=== PATIENT | male | born 1950 | race African-American/Black ===

== ENCOUNTER 2017-10-28 13:55 | Inpatient (IN) | payer MEDICARE ==
[~2017-10-28] VITALS: Ht 162.6 cm; Wt 119.1 kg
--- NOTE | ~2017-10-28 | OP ---
PATIENT NAME: DANIS BLACKBURN MEDICAL RECORD: [id number] :50 LOCATION:D.MS [id number] ADMISSION DATE:10/28/17 SURGEON: SEAN MONDRAGON MD DATE OF OPERATION: 10/31/2017 PREOPERATIVE DIAGNOSIS: Septic arthritis of the left knee. POSTOPERATIVE DIAGNOSIS: Septic arthritis of the left knee. PROCEDURE: Arthroscopic I&D of the left knee. SURGEON: Sean Mondragon MD ANESTHESIA: General. INTRAOPERATIVE COMPLICATIONS: None. SUMMARY OF PATHOLOGIC FINDINGS: The patient had turbid fluid that was sent for synovial fluid analysis as well as Gram stain, aerobic and anaerobic culture. It is of note that prior taps have all been negative and that there were no crystals seen. The infectious or inflammatory call remains a mystery at the time of this surgery. OPERATIVE SUMMARY IN DETAIL: After obtaining the appropriate preoperative orthopedic surgery consent as well as anesthetic consultation, evaluation, and clearance, the patient was brought to the operating room and placed on the operating table in supine position. After general laryngeal mask administered, tourniquet was placed on the proximal aspect of left lower extremity. Left lower extremity was prepped and draped in routine sterile fashion. The leg was elevated, tourniquet was inflated to 350 mmHg. Routine inferolateral portal was established through the inferior lateral portal. Copious amounts of turbid-appearing synovial fluid was noted. It was not grossly purulent. It was cloudy. The superior medial and inferior medial portal was established through which a large arthroscopic resector was utilized to take down portions of synovium in fact a near entire synovectomy was performed. There was no evidence of phlegmon. There were no evidence of internal derangements of the knee. 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 After approximately 12 liters of fluid was irrigated through the knee, the arthroscopy portals were closed in routine interrupted fashion using 4-0 Prolene. Sterile dressings were applied. The patient was awakened and taken to recovery room in stable condition. All final needle and sponge counts were correct. TRANSINT:[id number] Voice Confirmation ID: [id number] DOCUMENT ID: [id number] 11/28/2017 Edited pre/postop dx and procedure for left, SEAN Bajwa MD at 5600 CC: [id number] DICTATION DATE: 11/03/17 0937 ENAMEL DIPPER: 11/03/17 1036 DIS IN 11/07/17 [facility] [address] [id number]
[2017-10-28] MEDS ORDERED: PREDNISONE20 MG PO (14:04)
[2017-10-28] MEDS ORDERED: HYDRALAZINE HCL25 MG PO (14:04)
[2017-10-28] MEDS ORDERED: PROTONIX FOR OR40 MG PT (14:04)
[2017-10-28] MEDS ORDERED: GLIPIZIDE10 MG PO (14:05)
[2017-10-28] MEDS ORDERED: LEVOXYL50 MCG PO (14:06)
[2017-10-28] MEDS ORDERED: BUMEX 1 MG TAB1 MG PO (14:06)
[2017-10-28] MEDS ORDERED: ISOSORBIDE MONO60 M1 PO (14:07)
[2017-10-28] MEDS ORDERED: LIPITOR20 MG PO (14:07)
[2017-10-28] MEDS ORDERED: CELEXA10 MG PO (14:07)
[2017-10-28 15:58] LABS: BASOPHILS 0 % (0-2); EOSINOPHILS 0 % (0-7); HEMATOCRIT 35.7 % (42.0-54.0); HEMOGLOBIN 12.1 g/dL (13.5-17.5); IMMATURE GRANULOCYTES 0.5 % (0-5); LYMPHOCYTES 4.4 % (15-50); MCH 30.9 pg (26.0-34.0); MCHC 33.9 g/dL (31.0-37.0); MCV 91.3 fL (80.0-100.0); MEAN PLATELET VOLUME 10.1 fL (7.4-10.4); MONOCYTES 4.8 % (2-11); NEUTROPHILS 90.3 % (40-80); RBC 3.91 10x6/uL (4.20-6.10); RDW 13.8 % (11.5-14.5); WBC 12.6 10x3/uL (4.8-10.8)
[2017-10-28 16:00] LABS: PLATELET COUNT 186 10x3/uL (130-400)
[2017-10-28 16:15] LABS: INR 1.2 (0.85-1.17); PROTIME 14.8 SECONDS (11.6-15.0)
[2017-10-28 16:23] LABS: ALBUMIN 1.4 g/dL (3.4-5.0); ALKALINE PHOSPHATASE 123 U/L (46-116); ALT (SGPT) 45 U/L (10-68); BILIRUBIN - TOTAL 1.08 mg/dL (0.2-1.3); CALC OSMOLALITY 279 mosm/kg (275-300); CALCIUM 8.8 mg/dL (8.5-10.1); CARBON DIOXIDE 26.2 mmol/L (21.0-32.0); CHLORIDE - SERUM 97 mmol/L (98-107); CREATININE - SERUM 1.8 mg/dL (0.6-1.3); POTASSIUM - SERUM 3.8 mmol/L (3.5-5.1); PROTEIN - SERUM 6.8 g/dL (6.4-8.2); SODIUM 133 mmol/L (136-145); UREA NITROGEN 22 mg/dL (7-18); eGFR NON AFRICAN AMERICAN 40 mL/min (90-120)
[2017-10-28 16:24] LABS: GLUCOSE 289 mg/dL (74-106)
[2017-10-28 16:26] LABS: CKMB 0.3 U/L (0.0-3.6); CREATINE KINASE 182 UL (21-232)
[2017-10-28 16:31] LABS: D-DIMER-QUANTITATIVE 5.72 ug/mLFEU (0.20-0.54)
[2017-10-28 16:35] LABS: TROPONIN-I < 0.017 ng/mL (0.000-0.060)
[2017-10-28 18:44] LABS: APPEARANCE CLEAR (CLEAR); BILIRUBIN 1+ (NEGATIVE); COLOR ORANGE (YELLOW); GLUCOSE 50 mg/dL (NEGATIVE); KETONE SMALL mg/dL (NEGATIVE); NITRITE NEGATIVE (NEGATIVE); PROTEIN TRACE mg/dL (NEGATIVE); SPECIFIC GRAVITY 1.015 (1.005-1.020)
[2017-10-28 18:46] LABS: BACTERIA FEW /hpf (NONE SEEN); RED CELLS - URINE 0-5 /hpf (0-5); WHITE CELLS - URINE 0-5 /hpf (0-5)
[2017-10-28 21:40] VITALS: BP 128/73; BMI 45.0
[2017-10-29] VITALS: BP 147/87
[2017-10-29 04:00] VITALS: BP 164/90
[2017-10-29 06:47] LABS: BASOPHILS 0.1 % (0-2); EOSINOPHILS 0.1 % (0-7); HEMATOCRIT 33.1 % (42.0-54.0); HEMOGLOBIN 11.3 g/dL (13.5-17.5); IMMATURE GRANULOCYTES 1.2 % (0-5); LYMPHOCYTES 7.9 % (15-50); MCH 30.5 pg (26.0-34.0); MCHC 34.1 g/dL (31.0-37.0); MCV 89.5 fL (80.0-100.0); MONOCYTES 6.7 % (2-11); PLATELET COUNT 157 10x3/uL (130-400); RDW 13.8 % (11.5-14.5)
[2017-10-29 07:03] LABS: ALBUMIN 1.2 g/dL (3.4-5.0); BILIRUBIN - TOTAL 1.08 mg/dL (0.2-1.3); CALCIUM 8.2 mg/dL (8.5-10.1); CREATININE - SERUM 1.5 mg/dL (0.6-1.3)
[2017-10-29 07:12] LABS: ANION GAP 12.5 mmol/L (8-16); POTASSIUM - SERUM 4.5 mmol/L (3.5-5.1)
[2017-10-29 08:58] VITALS: Ht 162.6 cm; Wt 119.1 kg
[2017-10-29 13:29] LABS: PROTEIN - BODY FLUID 2.6 G/DL
[2017-10-29 13:56] LABS: MACROPHAGES BF 5 %; NEUT - BF 44 %
[2017-10-29 20:49] VITALS: BP 121/74
[2017-10-30 00:52] VITALS: BP 116/70
[2017-10-30 04:17] VITALS: BP 141/82
[2017-10-30] MEDS ORDERED: PROTONIX40 MG PO (05:32)
[2017-10-30 06:55] LABS: BASOPHILS 0 % (0-2); EOSINOPHILS 0.8 % (0-7); HEMATOCRIT 30.4 % (42.0-54.0); HEMOGLOBIN 10.1 g/dL (13.5-17.5); IMMATURE GRANULOCYTES 0.3 % (0-5); LYMPHOCYTES 12.4 % (15-50); MCH 30.2 pg (26.0-34.0); MCHC 33.2 g/dL (31.0-37.0); MEAN PLATELET VOLUME 10.2 fL (7.4-10.4); MONOCYTES 5.3 % (2-11); NEUTROPHILS 81.2 % (40-80); PLATELET COUNT 167 10x3/uL (130-400); RBC 3.34 10x6/uL (4.20-6.10); RDW 13.6 % (11.5-14.5); WBC 8.7 10x3/uL (4.8-10.8)
[2017-10-30 07:27] LABS: ALBUMIN 1.1 g/dL (3.4-5.0); BILIRUBIN - TOTAL 0.5 mg/dL (0.2-1.3); CALCIUM 8.1 mg/dL (8.5-10.1); CARBON DIOXIDE 28.5 mmol/L (21.0-32.0); CREATININE - SERUM 1.3 mg/dL (0.6-1.3); PROTEIN - SERUM 5.3 g/dL (6.4-8.2)
[2017-10-30 07:33] LABS: ANION GAP 9.7 mmol/L (8-16); POTASSIUM - SERUM 3.2 mmol/L (3.5-5.1)
[2017-10-30 09:09] VITALS: BP 124/75
[2017-10-30 12:31] VITALS: BP 138/82
[2017-10-30 20:09] VITALS: BP 134/81
[2017-10-31] VITALS (8 sets, daily range): BP systolic 112–171; BP diastolic 64–92
[2017-10-31 04:52] LABS: BASOPHILS 0.1 % (0-2); EOSINOPHILS 1.7 % (0-7); HEMATOCRIT 28.5 % (42.0-54.0); HEMOGLOBIN 9.4 g/dL (13.5-17.5); IMMATURE GRANULOCYTES 0.8 % (0-5); LYMPHOCYTES 14.8 % (15-50); MCH 29.7 pg (26.0-34.0); MCV 90.2 fL (80.0-100.0); MONOCYTES 7.2 % (2-11); NEUTROPHILS 75.4 % (40-80); PLATELET COUNT 192 10x3/uL (130-400); RBC 3.16 10x6/uL (4.20-6.10); RDW 13.8 % (11.5-14.5); WBC 7.7 10x3/uL (4.8-10.8)
[2017-10-31 04:59] LABS: ANION GAP 11.6 mmol/L (8-16); BILIRUBIN - TOTAL 0.28 mg/dL (0.2-1.3); CALCIUM 8.6 mg/dL (8.5-10.1); CARBON DIOXIDE 26.2 mmol/L (21.0-32.0); CREATININE - SERUM 1.2 mg/dL (0.6-1.3); POTASSIUM - SERUM 3.8 mmol/L (3.5-5.1); PROTEIN - SERUM 5.5 g/dL (6.4-8.2)
[2017-10-31 20:07] LABS: PROTEIN - BODY FLUID 1.4 G/DL
[2017-10-31 22:42] LABS: EOS BF 1 %; MACROPHAGES BF 1 %; MESOTHELIALS BF 1 %; NEUT - BF 94 %
[2017-11-01 00:18] VITALS: BP 136/71
[2017-11-01 04:10] VITALS: BP 115/70
[2017-11-01 08:00] LABS: BASOPHILS 0 % (0-2); EOSINOPHILS 1.2 % (0-7); HEMATOCRIT 27.6 % (42.0-54.0); HEMOGLOBIN 8.9 g/dL (13.5-17.5); IMMATURE GRANULOCYTES 1.5 % (0-5); LYMPHOCYTES 14.2 % (15-50); MCH 29.6 pg (26.0-34.0); MCHC 32.2 g/dL (31.0-37.0); MCV 91.7 fL (80.0-100.0); MEAN PLATELET VOLUME 9.5 fL (7.4-10.4); MONOCYTES 7.7 % (2-11); NEUTROPHILS 75.4 % (40-80); PLATELET COUNT 222 10x3/uL (130-400); RBC 3.01 10x6/uL (4.20-6.10); RDW 14.3 % (11.5-14.5); WBC 7.4 10x3/uL (4.8-10.8)
[2017-11-01 08:14] LABS: ANION GAP 10.9 mmol/L (8-16); BILIRUBIN - TOTAL 0.3 mg/dL (0.2-1.3); CALCIUM 7.7 mg/dL (8.5-10.1); CARBON DIOXIDE 26.1 mmol/L (21.0-32.0); CREATININE - SERUM 1.3 mg/dL (0.6-1.3)
[2017-11-01 08:19] VITALS: BP 139/82
[2017-11-01 17:29] VITALS: BP 138/81
[2017-11-01 20:00] VITALS: BP 146/80
[2017-11-02] VITALS: BP 146/89
[2017-11-02 04:00] VITALS: BP 156/94
[2017-11-02 04:53] LABS: BASOPHILS 0.1 % (0-2); EOSINOPHILS 1.9 % (0-7); HEMATOCRIT 26.8 % (42.0-54.0); HEMOGLOBIN 8.8 g/dL (13.5-17.5); IMMATURE GRANULOCYTES 3.6 % (0-5); LYMPHOCYTES 19.4 % (15-50); MCH 29.9 pg (26.0-34.0); MCHC 32.8 g/dL (31.0-37.0); MCV 91.2 fL (80.0-100.0); MEAN PLATELET VOLUME 9.5 fL (7.4-10.4); MONOCYTES 7.9 % (2-11); NEUTROPHILS 67.1 % (40-80); RBC 2.94 10x6/uL (4.20-6.10); RDW 14.4 % (11.5-14.5); WBC 7.5 10x3/uL (4.8-10.8)
[2017-11-02 04:54] LABS: PLATELET COUNT 275 10x3/uL (130-400)
[2017-11-02 05:01] LABS: ANION GAP 11.9 mmol/L (8-16); BILIRUBIN - TOTAL 0.3 mg/dL (0.2-1.3); CALCIUM 7.8 mg/dL (8.5-10.1); CREATININE - SERUM 1.1 mg/dL (0.6-1.3); POTASSIUM - SERUM 3.9 mmol/L (3.5-5.1); PROTEIN - SERUM 5.1 g/dL (6.4-8.2)
[2017-11-02 08:24] VITALS: BP 155/96
[2017-11-02 12:18] VITALS: BP 142/80
[2017-11-02 16:52] VITALS: BP 125/68
[2017-11-02 20:48] VITALS: BP 130/81
[2017-11-03 00:41] VITALS: BP 137/73
[2017-11-03 04:38] VITALS: BP 145/78
[2017-11-03 07:56] LABS: BASOPHILS 0.4 % (0-2); EOSINOPHILS 1.6 % (0-7); HEMATOCRIT 27.2 % (42.0-54.0); HEMOGLOBIN 8.7 g/dL (13.5-17.5); IMMATURE GRANULOCYTES 4.6 % (0-5); LYMPHOCYTES 18.1 % (15-50); MCH 29.7 pg (26.0-34.0); MCV 92.8 fL (80.0-100.0); MEAN PLATELET VOLUME 9.4 fL (7.4-10.4); MONOCYTES 6.9 % (2-11); NEUTROPHILS 68.4 % (40-80); PLATELET COUNT 323 10x3/uL (130-400); RBC 2.93 10x6/uL (4.20-6.10); RDW 14.5 % (11.5-14.5); WBC 8.3 10x3/uL (4.8-10.8)
[2017-11-03 08:07] LABS: ANION GAP 11.8 mmol/L (8-16); BILIRUBIN - TOTAL 0.29 mg/dL (0.2-1.3); CALCIUM 8.5 mg/dL (8.5-10.1); CREATININE - SERUM 1.1 mg/dL (0.6-1.3); POTASSIUM - SERUM 3.8 mmol/L (3.5-5.1); PROTEIN - SERUM 5.5 g/dL (6.4-8.2)
[2017-11-03 08:41] VITALS: BP 145/77
[2017-11-03 11:29] VITALS: BP 161/89
[2017-11-03 15:55] VITALS: BP 157/77
[2017-11-03 20:00] VITALS: BP 141/74
[2017-11-04] VITALS (7 sets, daily range): BP systolic 128–167; BP diastolic 69–80
[2017-11-05 04:07] VITALS: BP 140/83
[2017-11-05 05:40] LABS: BASOPHILS 0.3 % (0-2); EOSINOPHILS 0.9 % (0-7); HEMATOCRIT 27.2 % (42.0-54.0); HEMOGLOBIN 8.7 g/dL (13.5-17.5); IMMATURE GRANULOCYTES 4.4 % (0-5); LYMPHOCYTES 18.2 % (15-50); MCH 29.4 pg (26.0-34.0); MCV 91.9 fL (80.0-100.0); MEAN PLATELET VOLUME 8.8 fL (7.4-10.4); MONOCYTES 6.8 % (2-11); NEUTROPHILS 69.4 % (40-80); PLATELET COUNT 370 10x3/uL (130-400); RBC 2.96 10x6/uL (4.20-6.10); RDW 14.5 % (11.5-14.5); WBC 7.8 10x3/uL (4.8-10.8)
[2017-11-05 05:56] LABS: CALC OSMOLALITY 281 mosm/kg (275-300); CALCIUM 8.5 mg/dL (8.5-10.1); CARBON DIOXIDE 26.1 mmol/L (21.0-32.0); CHLORIDE - SERUM 109 mmol/L (98-107); GLUCOSE 163 mg/dL (74-106); POTASSIUM - SERUM 3.9 mmol/L (3.5-5.1); SODIUM 141 mmol/L (136-145); UREA NITROGEN 5 mg/dL (7-18); eGFR NON AFRICAN AMERICAN 79 mL/min (90-120)
[2017-11-05 06:03] LABS: C-REACTIVE PROTEIN 29.1 mg/dL (0.0-0.9)
[2017-11-05 07:02] LABS: ERYTHROCYTE SEDIMENTATION RATE 130 mm/hr (0-20)
[2017-11-05 08:07] VITALS: BP 153/80
[2017-11-05] MEDS ORDERED: DOXYCYCLINE HY100 M2 PO (08:59)
[2017-11-05 18:29] VITALS: BP 142/85
[2017-11-05 21:08] VITALS: BP 149/81
[2017-11-06 01:08] VITALS: BP 142/81
[2017-11-06 04:45] VITALS: BP 147/87
[2017-11-06 08:00] VITALS: BP 154/89
[2017-11-06 10:11] LABS: BASOPHILS 0.1 % (0-2); EOSINOPHILS 0.8 % (0-7); HEMOGLOBIN 8.9 g/dL (13.5-17.5); IMMATURE GRANULOCYTES 1.8 % (0-5); LYMPHOCYTES 15.7 % (15-50); MCH 29.7 pg (26.0-34.0); MCHC 31.8 g/dL (31.0-37.0); MCV 93.3 fL (80.0-100.0); MEAN PLATELET VOLUME 8.4 fL (7.4-10.4); MONOCYTES 4.8 % (2-11); NEUTROPHILS 76.8 % (40-80); PLATELET COUNT 359 10x3/uL (130-400); RDW 14.4 % (11.5-14.5); WBC 7.7 10x3/uL (4.8-10.8)
[2017-11-06 12:15] VITALS: BP 144/84
[2017-11-06 16:00] VITALS: BP 136/72
[2017-11-06 20:13] VITALS: BP 140/82
[2017-11-07] VITALS: BP 141/73
[2017-11-07 04:00] VITALS: BP 134/79
[2017-11-07 08:41] VITALS: BP 143/86
[2017-11-07 13:04] VITALS: BP 157/84
[2017-11-07 16:39] VITALS: BP 136/78
[2017-11-07] MEDS ORDERED: HYDROCODONE-APA1 TAB PO (17:14)
== END 2017-11-07 17:38 | DRG 548 ==
LOC: D.ER 13:55 → D.MS 17:18
PROVIDERS: Family Medicine; Orthopaedic Surgery; Student in an Organized Health Care Education/Training Program
PROC: 0S9D3ZZ Drainage of Left Knee Joint, Percutaneous Approach (ICD-10-PCS; principal; 2017-10-29)
PROC: 0S9C4ZZ Drainage of Right Knee Joint, Percutaneous Endoscopic Approach (ICD-10-PCS; 2017-10-31)
DX: M00.9 Pyogenic arthritis, unspecified (principal); J18.9 Pneumonia, unspecified organism; L03.116 Cellulitis of left lower limb; I10 Essential (primary) hypertension; R79.89 Other specified abnormal findings of blood chemistry; E11.9 Type 2 diabetes mellitus without complications; Z79.84 Long term (current) use of oral hypoglycemic drugs

== ENCOUNTER 2018-09-07 13:38 | Inpatient (IN) | payer MEDICARE ==
[~2018-09-07] VITALS: Ht 162.6 cm; Wt 111.2 kg
--- NOTE | ~2018-09-07 | EC ---
PATIENT:DANIS BLACKBURN DATE OF SERVICE: 09/07/18 SEX: M MEDICAL RECORD: [id number] DATE OF : 50 LOCATION:D.M2 D.213 AGE OF PATIENT: 68 ADMISSION DATE: 09/07/18 REFERRING PHYSICIAN: INTERPRETING PHYSICIAN: VIK DEUTSCH MD ECHOCARDIOGRAM REPORT ECHO CHARGES 4 ECHO COMPLETE Date: 09/08/18 CLINICAL DIAGNOSIS: LOWER EDEMA, HX OF HTN ECHOCARDIOGRAPHIC MEASUREMENTS (adult normal given) AC root (d.<3.7cm) 3.9 cm LV Septum d (<1.2 cm> 1.5 cm Valve Excursion 2.1 cm LV Septum (systole) 1.7 cm Left Atria (s.<4.0cm> 3.4 cm LVPW d(<1.2cm) 1.9 cm RV (d.<2.3cm) 3.4 cm LVPW (sytole) 2.0 cm LV diastole(<5.6CM) 4.2 cm MV E-F(>70mm/sec) cm LV systole 3.0 cm LVOT Diameter 1.7 cm MV exc.(>10mm) 1.7 cm Est.ejection fraction (50-75%) % DOPPLER: LVIT cm/sec A 73.0 cm/sec E 51.0 cm/sec LA cm/sec RVSP 32 mmHg LVOT 81 cm/sec AOP1/2T m/s Asc. Ao 122 cm/sec RVOT 93 cm/sec RA cm/sec PA 119 cm/sec AV Gradient Peak 5.99 mmHg AV Mean 2.08 mmHg AV Area 1.7 cm MV Gradient Peak 2.70 mmHg MV Mean 1.47 mmHg MV Area cm COMMENTS: Transportation Officer: 2 ENOCH JAVIER [employer] Cutter Finisher: 1 Dr. Deutsch TAPE# PACS Pericardial Effusion N DATE OF SERVICE: FINDINGS: 1. Left ventricular chamber size is within normal limits. Left ventricular systolic function is normal. Overall ejection fraction estimated at 60%. 2. Left atrium, right atrium and right ventricular chamber sizes are within normal limits. 3. Valvular structures have normal structure and motion. 4. Doppler interrogation reveals no significant valvular insufficiency or stenosis. ECHOCARDIOGRAM REPORT [id number] DANIS BLACKBURN 5. No evidence of pericardial effusion or left ventricular thrombus. TRANSINT:[id number] Voice Confirmation ID: [id number] DOCUMENT ID: [id number] VIK DEUTSCH MD CC: [id number] DICTATION DATE: 09/08/18 1431 JET PILOT: 09/09/18 0032 ADM IN [facility] [address] [id number]
[~2018-09-07 13:38] MED LIST: BUMEX 1 MG TAB1 MG PO; CELEXA10 MG PO; DOXYCYCLINE HY100 M2 PO; GLIPIZIDE10 MG PO; HYDRALAZINE HCL25 MG PO; HYDROCODONE-APA1 TAB PO; ISOSORBIDE MONO60 M1 PO; LEVOXYL50 MCG PO; LIPITOR20 MG PO; PREDNISONE20 MG PO; PROTONIX FOR OR40 MG PT; PROTONIX40 MG PO
[2018-09-07] MEDS ORDERED: CATAPRES0.1 MG PO (14:01)
[2018-09-07] MEDS ORDERED: HCTZ PO (14:03)
[2018-09-07] MEDS ORDERED: TRIAM PO (14:03)
[2018-09-07] MEDS ORDERED: FERROUS SULFAT325 MG PO (14:04)
[2018-09-07] MEDS ORDERED: LISINOPRIL20 MG PO (14:04)
[2018-09-07] MEDS ORDERED: ALBUTEROL SULF8.5 GM INH (14:05)
[2018-09-07] MEDS ORDERED: SYMBICORT 16010.2 GM INH (14:05)
[2018-09-07 14:34] LABS: BASOPHILS 0.2 % (0-2); EOSINOPHILS 7.9 % (0-7); HEMATOCRIT 37.7 % (42.0-54.0); IMMATURE GRANULOCYTES 0.2 % (0-5); LYMPHOCYTES 36.7 % (15-50); MCH 30.2 pg (26.0-34.0); MCHC 34.5 g/dL (31.0-37.0); MCV 87.7 fL (80.0-100.0); MEAN PLATELET VOLUME 9.2 fL (7.4-10.4); MONOCYTES 5.6 % (2-11); NEUTROPHILS 49.4 % (40-80); PLATELET COUNT 162 10x3/uL (130-400); WBC 4.8 10x3/uL (4.8-10.8)
[2018-09-07 14:55] LABS: ALBUMIN 1.1 g/dL (3.4-5.0); BILIRUBIN - TOTAL 0.21 mg/dL (0.2-1.3); CALCIUM 7.7 mg/dL (8.5-10.1); CARBON DIOXIDE 25.4 mmol/L (21.0-32.0); CREATININE - SERUM 3.8 mg/dL (0.6-1.3); POTASSIUM - SERUM 3.4 mmol/L (3.5-5.1); PROTEIN - SERUM 5.1 g/dL (6.4-8.2)
[2018-09-07 15:33] VITALS: BP 170/82
[2018-09-07 16:32] VITALS: BP 167/91
--- NOTE | 2018-09-07 16:37 | NUR ---
TO CT VIA STRETHER WITH INSURANCE SALESPERSON
[2018-09-07 17:25] VITALS: BP 162/93
--- NOTE | 2018-09-07 18:04 | NUR ---
PT VOIED 600ML CLEAR YELLOW URINE VIA URINAL. RESTING COMFORTABLE/WATCHING TV. NO C/O
[2018-09-07 18:32] VITALS: BP 174/97
--- NOTE | 2018-09-07 18:32 | NUR ---
EXPL POC/ADMIT TO PT. VERB UNDER
--- NOTE | 2018-09-07 19:02 | NUR ---
REPORT GIVEN TO ALLIE BY SBAR FORMAT
--- NOTE | 2018-09-07 20:30 | NUR ---
PT ARRIVED TO ROOM 2131, PT IS AAO. UPDATED MED REC AND PHARMACY. PT TELEMETRY PLACED AND URINAL PROVIDED. RIGHT AC IV 20G PATENT DRSG CDI. S1S2 RRR. PT IS SINUS PHILIPPE 56. PT WILL CALL FOR ASSIST WHEN NEEDED
[2018-09-07 21:14] VITALS: BP 198/94
[2018-09-07] MEDS ORDERED: NITROQUICK0.4 MG SL (23:58)
[2018-09-08] VITALS (7 sets, daily range): BP systolic 150–198; BP diastolic 91–106; Ht 162.6 cm; Wt 111.2 kg
[2018-09-08] MEDS ORDERED: BAYER CHEWABLE81 MG PO (00:02)
--- NOTE | 2018-09-08 06:32 | NUR ---
PT URINAL EMPTIED 275 CLEAR YELLOW URINE. BUMEX INFUSING AT 10 ORDERED TO RIGHT AC. PT HAS NO S/S OF DISTRESS. WILL CPOC
[2018-09-08 07:02] LABS: ANION GAP 9.8 mmol/L (8-16); BILIRUBIN - TOTAL 0.29 mg/dL (0.2-1.3); CALCIUM 7.6 mg/dL (8.5-10.1); CARBON DIOXIDE 27.1 mmol/L (21.0-32.0); CREATININE - SERUM 3.7 mg/dL (0.6-1.3); MAGNESIUM - SERUM 2.2 mg/dL (1.8-2.4); POTASSIUM - SERUM 3.9 mmol/L (3.5-5.1); PROTEIN - SERUM 4.6 g/dL (6.4-8.2)
[2018-09-08 07:03] LABS: BASOPHILS 0.6 % (0-2); EOSINOPHILS 6.9 % (0-7); HEMATOCRIT 36.4 % (42.0-54.0); HEMOGLOBIN 12.5 g/dL (13.5-17.5); IMMATURE GRANULOCYTES 0.4 % (0-5); LYMPHOCYTES 36.6 % (15-50); MCHC 34.3 g/dL (31.0-37.0); MCV 87.5 fL (80.0-100.0); MEAN PLATELET VOLUME 9.7 fL (7.4-10.4); MONOCYTES 9.1 % (2-11); NEUTROPHILS 46.4 % (40-80); PLATELET COUNT 155 10x3/uL (130-400); RBC 4.16 10x6/uL (4.20-6.10); RDW 14.2 % (11.5-14.5)
--- NOTE | 2018-09-08 07:48 | NUR ---
THE PATIENT IS AWAKE AND ALERT, HIS BP IS ELEVATED 150/91, WILL MONITOR. RT HERE PROVIDING INHALER. HE IS ALERT, ORIENTED AND PLEASANT.
--- NOTE | 2018-09-08 11:58 | NUR ---
PATIENT REQUESTED A POPSICKLE DID PROVIDE HIM A POPSICKLE. HE HAS HAD TWO ICED WISDOM AND AN APPLE JUICE.
--- NOTE | 2018-09-08 12:08 | NUR ---
THE PATIENT'S BLOOD PRESSURE IS 189/99, WILL PROVIDE HYDRALAZINE ORDERED, SEE MAR
--- NOTE | 2018-09-08 12:53 | NUR ---
OT EVAL: PT DOING WELL WITH ADLS AND MOBILITY. ABLE TO AMB WITHOUT ASSIST IN ROOM; ALL ADLS, INCLUDING SHOWER, PT WAS ABLE TO PERFORM INDEPENDENTLY. NO OT RECOMMENDED AT THIS TIME. JOSE CROOK, OTR/L
--- NOTE | 2018-09-08 14:14 | NUR ---
THE PATIENT IS UP IN HIS BATHROOM AND HE SAYS HE DENIES NEEDS AT THIS TIME.
--- NOTE | 2018-09-08 15:01 | NUR ---
THE PATIENT'S BP IS 185/86, HE ALREADY HAD HYDRALAZINE AT NOON, HE CAN HAVE HYDRALAZINE EVERY SIX HOURS PRN.
--- NOTE | 2018-09-08 15:51 | NUR ---
CHECKED ON THE PATIENT, HE IS RESTING EASILY IN HIS BED, HE HAS NO NEEDS AT THIS TIME.
--- NOTE | 2018-09-08 17:30 | NUR ---
THE PATIENT SAID HE HAD AN ACCIDENT IN THE BATHROOM, DID LOOK AT THE BATHROOM AND HE HAD URINATED ON THE FLOOR AND THE TOILET SEAT. DID CLEAN THE FLOOR AND TOILET UP AND BROUGHT HIM A CLEAN GOWN.
--- NOTE | 2018-09-08 19:15 | NUR ---
RECEIVED REPORT, WILL ASSUME CARE OF PT, WATCHING TV, DENIES ANY NEEDS AT THIS TIME, BED IS LOW, SRX2, CALL LIGHT IN REACH, WILL CONTINUE PLAN OF CARE
[2018-09-09 00:47] VITALS: BP 181/93
--- NOTE | 2018-09-09 02:55 | NUR ---
I have reviewed this patient and I concur with the Shift Assessment completed by the Licensed Practical Nurse today this shift.
[2018-09-09 05:24] VITALS: BP 165/94
[2018-09-09 05:55] LABS: BASOPHILS 0.5 % (0-2); EOSINOPHILS 7.5 % (0-7); HEMATOCRIT 38.1 % (42.0-54.0); HEMOGLOBIN 13.3 g/dL (13.5-17.5); IMMATURE GRANULOCYTES 0.2 % (0-5); LYMPHOCYTES 35.8 % (15-50); MCH 30.4 pg (26.0-34.0); MCHC 34.9 g/dL (31.0-37.0); MEAN PLATELET VOLUME 9.5 fL (7.4-10.4); MONOCYTES 10.8 % (2-11); NEUTROPHILS 45.2 % (40-80); PLATELET COUNT 167 10x3/uL (130-400); RBC 4.38 10x6/uL (4.20-6.10); RDW 14.2 % (11.5-14.5); WBC 4.3 10x3/uL (4.8-10.8)
[2018-09-09 06:16] LABS: ANION GAP 12.9 mmol/L (8-16); BILIRUBIN - TOTAL 0.25 mg/dL (0.2-1.3); CALCIUM 7.7 mg/dL (8.5-10.1); CARBON DIOXIDE 24.5 mmol/L (21.0-32.0); CREATININE - SERUM 3.7 mg/dL (0.6-1.3); MAGNESIUM - SERUM 2.2 mg/dL (1.8-2.4); POTASSIUM - SERUM 3.4 mmol/L (3.5-5.1); PROTEIN - SERUM 4.7 g/dL (6.4-8.2)
--- NOTE | 2018-09-09 07:40 | NUR ---
REPORT RECIEVED AND MORNING ROUNDING COMPLETE. PT LAYING IN BED TALKING ON THE PHONE. PT STATES NO NEEDS AT THIS TIME. CALL LIGHT WITHIN REACH AND BED IN LOWEST POSITION. PT HAS A RIGHT AC PIV RUNNING @ 1OML/HR. NO S/SX OF PROBLEM, PT DISPLAYS NO S/SX OF DISTRESS. CPOC.
[2018-09-09 08:10] VITALS: BP 151/91
[2018-09-09 11:51] VITALS: BP 142/86
--- NOTE | 2018-09-09 12:42 | NUR ---
PLACED A 16 BENINESE VELEZ. PT TOLERATED WELL. WAS ABLE TO RECIEVE UA SAMPLE WELL. STERILE TECHINQUE FOLLOWED. PT RESTING NOW AND EATING LUNCH, NO OTHER NEEDS AT THIS TIME CALL LIGHT WITHIN REACH.
[2018-09-09 16:01] VITALS: BP 154/107
[2018-09-09 16:07] LABS: APPEARANCE CLEAR (CLEAR); BILIRUBIN NEGATIVE (NEGATIVE); COLOR YELLOW (YELLOW); GLUCOSE 100 mg/dL (NEGATIVE); KETONE NEGATIVE (NEGATIVE); NITRITE NEGATIVE (NEGATIVE); PROTEIN 2+ mg/dL (NEGATIVE); SPECIFIC GRAVITY 1.015 (1.005-1.020); UROBILINOGEN NORMAL (NORMAL)
[2018-09-09 16:08] LABS: BACTERIA FEW /hpf (NONE SEEN); RED CELLS - URINE 0-5 /hpf (0-5); WHITE CELLS - URINE 0-5 /hpf (0-5)
[2018-09-09 16:16] LABS: CREATININE - URINE 35.5 mg/dL (30-125)
[2018-09-09 16:17] LABS: PRO/CRE RATIO URINE 14.2 mg/g; PROTEIN - URINE 502.8 mg/dL (0.0-11.9)
--- NOTE | 2018-09-09 18:18 | NUR ---
I have reviewed this patient and I concur with the Shift Assessment completed by the Licensed Practical Nurse today this shift.
--- NOTE | 2018-09-09 19:44 | NUR ---
RECEIVED REPORT, WILL ASSUME CARE OF PT, PT IS WANTING VELEZ REMOVED, EXPLAINED DRSandy WANTS IT KEEP, SO WE CAN SEE HOW MUCH HE IS PUTTING OUT, FAMILY IN ROOM, TOLD HIM I WOULD BE BACK TO SEE WHAT HE WANTS TO DO, BED IS LOW, SRX1, CALL LIGHT IN REACH, WILL CONTINUE PLAN OF CARE
--- NOTE | 2018-09-09 19:52 | NUR ---
PT HAS AGREE TO KEEP VELEZ AT THIS TIME
[2018-09-09 20:00] VITALS: BP 169/98
[2018-09-10] VITALS: BP 153/87
--- NOTE | 2018-09-10 03:37 | NUR ---
I have reviewed this patient and I concur with the Shift Assessment completed by the Licensed Practical Nurse today this shift.
[2018-09-10 04:00] VITALS: BP 157/96
[2018-09-10 06:20] LABS: BASOPHILS 0.2 % (0-2); EOSINOPHILS 6.9 % (0-7); HEMATOCRIT 36.7 % (42.0-54.0); HEMOGLOBIN 12.5 g/dL (13.5-17.5); LYMPHOCYTES 35.6 % (15-50); MCH 29.9 pg (26.0-34.0); MCHC 34.1 g/dL (31.0-37.0); MCV 87.8 fL (80.0-100.0); MEAN PLATELET VOLUME 10.2 fL (7.4-10.4); MONOCYTES 10.5 % (2-11); NEUTROPHILS 46.8 % (40-80); PLATELET COUNT 175 10x3/uL (130-400); RBC 4.18 10x6/uL (4.20-6.10); RDW 14.4 % (11.5-14.5)
[2018-09-10 06:41] LABS: ALBUMIN 0.9 g/dL (3.4-5.0); ANION GAP 11.9 mmol/L (8-16); BILIRUBIN - TOTAL 0.27 mg/dL (0.2-1.3); CALCIUM 7.9 mg/dL (8.5-10.1); CARBON DIOXIDE 25.5 mmol/L (21.0-32.0); CREATININE - SERUM 4.1 mg/dL (0.6-1.3); MAGNESIUM - SERUM 2.1 mg/dL (1.8-2.4); POTASSIUM - SERUM 3.4 mmol/L (3.5-5.1); PROTEIN - SERUM 4.6 g/dL (6.4-8.2)
--- NOTE | 2018-09-10 07:30 | NUR ---
RESTING QUIETLY EYES CLOSED RESP UNLABORED SKIN W/D NAD NOTED
[2018-09-10 08:14] VITALS: BP 153/92
--- NOTE | 2018-09-10 11:50 | NUR ---
FSBS 267 HUMALOG 6 UNITS GIVEN SQ ABDOMEN
[2018-09-10 12:08] VITALS: BP 129/74
[2018-09-10 15:49] VITALS: BP 164/93
--- NOTE | 2018-09-10 20:16 | NUR ---
RECEIVED REPORT, WILL ASSUME CARE OF PT, DENIES ANY NEEDS AT THIS TIME, BED IS LOW, SRX2, CALL LIGHT IN REACH, WILL CONTINUE PLAN OF CARE
[2018-09-10 20:33] VITALS: BP 155/92
[2018-09-11 00:33] VITALS: BP 144/95
--- NOTE | 2018-09-11 04:27 | NUR ---
I have reviewed this patient and I concur with the Shift Assessment completed by the Licensed Practical Nurse today this shift.
[2018-09-11 05:08] VITALS: BP 144/80
[2018-09-11 06:35] LABS: ALBUMIN 0.9 g/dL (3.4-5.0); ANION GAP 10.8 mmol/L (8-16); BILIRUBIN - TOTAL 0.36 mg/dL (0.2-1.3); CALCIUM 7.7 mg/dL (8.5-10.1); CARBON DIOXIDE 26.1 mmol/L (21.0-32.0); CREATININE - SERUM 4.3 mg/dL (0.6-1.3); MAGNESIUM - SERUM 1.9 mg/dL (1.8-2.4); POTASSIUM - SERUM 3.9 mmol/L (3.5-5.1); PROTEIN - SERUM 4.6 g/dL (6.4-8.2)
[2018-09-11 06:58] LABS: BASOPHILS 0.3 % (0-2); EOSINOPHILS 3.2 % (0-7); HEMOGLOBIN 12.7 g/dL (13.5-17.5); IMMATURE GRANULOCYTES 0.1 % (0-5); LYMPHOCYTES 24.7 % (15-50); MCH 30.4 pg (26.0-34.0); MCHC 34.3 g/dL (31.0-37.0); MCV 88.5 fL (80.0-100.0); MEAN PLATELET VOLUME 9.6 fL (7.4-10.4); MONOCYTES 8.3 % (2-11); NEUTROPHILS 63.4 % (40-80); PLATELET COUNT 154 10x3/uL (130-400); RBC 4.18 10x6/uL (4.20-6.10); RDW 14.3 % (11.5-14.5)
[2018-09-11 07:04] LABS: WBC 7.1 10x3/uL (4.8-10.8)
--- NOTE | 2018-09-11 07:45 | NUR ---
RECIEVED SITTING UP ON SIDE OF BED. DENIES ANY PAIN BUT IS UNCOMFORTABLE WITH VELEZ. HE IS WANTING IT OUT. NO OTHER REQUESTS OR COMPLAINTS. ASSESSMENT COMPLETED. WILL CONTINUE POC.
[2018-09-11 08:00] VITALS: BP 141/102
[2018-09-11 09:17] LABS: COMPLEMENT C4 22.6 mg/dL (17.4-52.2)
[2018-09-11 10:21] LABS: ERYTHROCYTE SEDIMENTATION RATE 89 mm/hr (0-20)
[2018-09-11 12:00] VITALS: BP 134/78
--- NOTE | 2018-09-11 12:03 | NUR ---
I have reviewed this patient and I concur with the Shift Assessment completed by the Licensed Practical Nurse today this shift.
--- NOTE | 2018-09-11 14:11 | NUR ---
Nutrition Follow Up: Renal ADA diet with 73% average po intake BM yesterday Pt reports good appetite and no problems chewing the food Pt has no questions about Renal diet at this time RD following
[2018-09-11 16:20] VITALS: BP 148/91
--- NOTE | 2018-09-11 16:55 | NUR ---
OT NOTE: PT COMPLETED SITTING BALANCE AXS WITH SBA. PT COMPLETED SIT TO STAND WITH CGA/MIN A. PT COMPLETED GROOMING TASK WITH SET UP. PT COMPLETED BUE AROM AXS. 03/1132 THANK YOU, JESUS WILLIAMSON
--- NOTE | 2018-09-11 19:30 | NUR ---
RECEIVED REPORT, WILL ASSUME CARE OF PT, DENIES ANY NEEDS, VISITING WITH FAMILY, BED IS LOW, SRX2, CALL LIGHT IN REACH, WILL CONTINUE PLAN OF CARE
[2018-09-11 20:00] VITALS: BP 131/92
[2018-09-12] VITALS: BP 144/81
--- NOTE | 2018-09-12 03:49 | NUR ---
I have reviewed this patient and I concur with the Shift Assessment completed by the Licensed Practical Nurse today this shift.
[2018-09-12 04:00] VITALS: BP 120/82
[2018-09-12 05:37] LABS: APPEARANCE HAZY (CLEAR); BILIRUBIN NEGATIVE (NEGATIVE); COLOR YELLOW (YELLOW); GLUCOSE 100 mg/dL (NEGATIVE); KETONE NEGATIVE (NEGATIVE); NITRITE NEGATIVE (NEGATIVE); PROTEIN 3+ mg/dL (NEGATIVE); SPECIFIC GRAVITY 1.015 (1.005-1.020); UROBILINOGEN NORMAL (NORMAL)
[2018-09-12 05:40] LABS: BACTERIA FEW /hpf (NONE SEEN); EPITHELIAL CELLS OCC /hpf (0-5); GRANULAR CAST RARE /lpf (NONE SEEN); HYALINE CAST 0-5 /lpf (NONE SEEN); MUCUS <1+ /lpf (NONE SEEN); RED CELLS - URINE 25-50 /hpf (0-5); WHITE CELLS - URINE 0-5 /hpf (0-5)
[2018-09-12 05:41] LABS: AMORPHOUS SEDIMENT <1+ /lpf (NONE SEEN); WAXY CAST RARE /lpf (NONE SEEN)
[2018-09-12 05:43] LABS: BASOPHILS 0.4 % (0-2); EOSINOPHILS 9.4 % (0-7); HEMATOCRIT 31.3 % (42.0-54.0); HEMOGLOBIN 10.7 g/dL (13.5-17.5); IMMATURE GRANULOCYTES 0.2 % (0-5); LYMPHOCYTES 39.4 % (15-50); MCH 30.2 pg (26.0-34.0); MCHC 34.2 g/dL (31.0-37.0); MCV 88.4 fL (80.0-100.0); MEAN PLATELET VOLUME 9.5 fL (7.4-10.4); MONOCYTES 7.4 % (2-11); NEUTROPHILS 43.2 % (40-80); PLATELET COUNT 143 10x3/uL (130-400); RBC 3.54 10x6/uL (4.20-6.10); RDW 14.3 % (11.5-14.5); WBC 5.5 10x3/uL (4.8-10.8)
[2018-09-12 06:26] LABS: ALBUMIN 0.9 g/dL (3.4-5.0); ANION GAP 12.2 mmol/L (8-16); BILIRUBIN - TOTAL 0.31 mg/dL (0.2-1.3); CALCIUM 7.7 mg/dL (8.5-10.1); CARBON DIOXIDE 25.7 mmol/L (21.0-32.0); CREATININE - SERUM 4.3 mg/dL (0.6-1.3); POTASSIUM - SERUM 3.9 mmol/L (3.5-5.1); PROTEIN - SERUM 4.3 g/dL (6.4-8.2)
[2018-09-12 07:18] LABS: RAPID PLASMA REAGIN Non Reactive (Non Reactive)
--- NOTE | 2018-09-12 07:29 | NUR ---
AM ROUNDS- PT IN BED THE BATHROOM AT THIS TIME. WILL COME BACK ONCE HE IS OUT.
[2018-09-12 08:10] LABS: PROTEIN - URINE 1968.1 mg/dL (0.0-11.9)
[2018-09-12 08:31] LABS: CREATININE - URINE 141.9 mg/dL (30-125); PRO/CRE RATIO URINE 13.9 mg/g
[2018-09-12 08:57] VITALS: BP 137/85
[2018-09-12 09:13] LABS: ANA REFLEX - DIRECT Negative (Negative)
--- NOTE | 2018-09-12 11:28 | NUR ---
BLOOD SUGAR OF 143, NO COVERAGE NEEDED PER S/S. PT DENIES ANY NEEDS AT THIS TIME. CALL LIGHT IN REACH, NAD NOTED, WILL CONTINUE TO MONITOR.
--- NOTE | 2018-09-12 11:32 | NUR ---
BLOOD SUGAR OF 227, 8UNIT OF HUMULIN GIVEN PER S/S. PT DENIES ANY NEEDS AT THIS TIME. CALL LIGHT IN REACH, NAD NOTED, WILL CONTINUE TO MONITOR.
[2018-09-12 11:59] VITALS: BP 163/99
--- NOTE | 2018-09-12 12:12 | NUR ---
VELEZ CATHETER REMOVED PER ORDERS. PASSED BULB DEFLATION. NO CATHY BLOOD. URINAL AT BEDSIDE INSTRUCTED TO USE.
--- NOTE | 2018-09-12 16:00 | NUR ---
PT TRANSFERED TO CAR DESIGNER.
--- NOTE | 2018-09-12 16:08 | NUR ---
BLOOD SUGAR OF 215, 4UNITS OF HUMOLOG GIVEN PER S/S. PT DENIES ANY NEEDS AT THIS TIME. CALL LIGHT IN REACH, NAD NTOED, WILL CONTINUE TO MONITOR.
[2018-09-12 16:11] VITALS: BP 142/83
[2018-09-12 20:00] VITALS: BP 181/93
--- NOTE | 2018-09-12 21:02 | NUR ---
HS MEDS GIVEN WITH FRESH ICE WATER. BS COVERED PER S/S. PT DENIES PAIN OR NEEDS, BED LOW, CL IN REACH.
[2018-09-13 00:30] VITALS: BP 141/102
--- NOTE | 2018-09-13 02:01 | NUR ---
RESTING WITH EYES CLOSED, RESPERATONS EVEN, NO S/S DISTRESS NOTED.
--- NOTE | 2018-09-13 04:11 | NUR ---
I have reviewed this patient and I concur with the Shift Assessment completed by the Licensed Practical Nurse today this shift.
[2018-09-13 05:00] VITALS: BP 132/84
[2018-09-13 05:01] LABS: BASOPHILS 0 % (0-2); EOSINOPHILS 0 % (0-7); HEMATOCRIT 34.8 % (42.0-54.0); HEMOGLOBIN 12.1 g/dL (13.5-17.5); IMMATURE GRANULOCYTES 0.4 % (0-5); LYMPHOCYTES 17.9 % (15-50); MCHC 34.8 g/dL (31.0-37.0); MEAN PLATELET VOLUME 9.5 fL (7.4-10.4); MONOCYTES 3.9 % (2-11); NEUTROPHILS 77.8 % (40-80); PLATELET COUNT 141 10x3/uL (130-400); RBC 4.03 10x6/uL (4.20-6.10); RDW 13.6 % (11.5-14.5); WBC 5.6 10x3/uL (4.8-10.8)
[2018-09-13 05:04] LABS: MCV 86.4 fL (80.0-100.0)
[2018-09-13 05:17] LABS: ANION GAP 13.2 mmol/L (8-16); CALCIUM 7.8 mg/dL (8.5-10.1); CARBON DIOXIDE 22.2 mmol/L (21.0-32.0); CREATININE - SERUM 4.2 mg/dL (0.6-1.3); POTASSIUM - SERUM 4.4 mmol/L (3.5-5.1)
--- NOTE | 2018-09-13 07:17 | NUR ---
PT RESTING COMFORTABLY IN BED, PT A/O X4, RESP EVEN AND NONLABORED ON RA. SR 69 ON TELEMETRY. LT FA SL. PT DENIES ANY NEEDS AT THIS TIME. CALL LIGHT IN REACH, NAD NOTED, WILL CONTINUE PLAN OF CARE.
[2018-09-13 08:39] VITALS: BP 155/100
[2018-09-13 09:14] LABS: ANTI-GLOMERULAR BASMENT MEMBRN 3 units (0-20)
[2018-09-13 11:51] VITALS: BP 141/89
--- NOTE | 2018-09-13 12:35 | NUR ---
BLOOD SUGAR OF 224, 4UNITS OF HUMOLOG PER S/S. PT UP TO CHAIR, DENIES ANY NEEDS AT THIS TIME. CALL LIGHT IN REACH, NAD NOTED,W ILL CONTINUE TO MONITOR.
[2018-09-13 15:50] VITALS: BP 144/97
[2018-09-13 16:08] LABS: SPE - A/G RATIO 0.6 (0.7-1.7); SPE - ALBUMIN 1.7 g/dL (2.9-4.4); SPE - ALPHA-1 GLOBULIN 0.2 g/dL (0.0-0.4); SPE - ALPHA-2 GLOBULIN 1.1 g/dL (0.4-1.0); SPE - GAMMA GLOBULIN 0.5 g/dL (0.4-1.8); SPE - M-SPIKE Not Observed g/dL (Not Observed); SPE - TOTAL PROTEIN 4.6 g/dL (6.0-8.5)
--- NOTE | 2018-09-13 16:19 | NUR ---
BLOOD SUGAR OF 209, 4UNITS OF HUMALOG GIVEN PER S/S. PT UP TO CHAIR, DENIES ANY NEEDS AT THIS TIME. CALL LIGHT IN REACH.
--- NOTE | 2018-09-13 16:30 | MORECARE ---
CASE MANAGEMENT DISCHARGE SUMMARY PATIENT: DANIS BLACKBURN UNIT: [id number] ADM DATE: 09/07/18 AGE: 68 : 50 SEX: M ROOM/BED: D.2132 AUTHOR: EFRAÍN CHEN PHYSICIAN: REFERRING PHYSICIAN: MERCY GAXIOLA DO DATE OF SERVICE: 09/13/18 Discharge Plan Patient Name: DANIS BLACKBURN Facility: [facility]:[place] : 1950 Planned Disposition: Home Anticipated Discharge Date: 09/13/18 Discharge Date: Expected LOS: 6 Initial Reviewer: [email or web address] Initial Review Date: 09/13/2018 Generated: 09/13/18 5:29 pm Patient Name: DANIS BLACKBURN Page [id number] at 1630 All edits/amendments must be made on the electronic document DICTATION DATE: 09/13/181628 CARE TEAM ASSISTANT: SHAYLA 09/13/181628 RPT#: [id number] DC DATE: STATUS: ADM IN [facility] [address] [place] [address] END OF REPORT
--- NOTE | 2018-09-13 16:38 | MORECARE ---
CASE MANAGEMENT DISCHARGE SUMMARY PATIENT: DANIS BLACKBURN UNIT: [id number] ADM DATE: 09/07/18 AGE: 68 : 50 SEX: M ROOM/BED: D.2132 AUTHOR: EFRAÍN CHEN PHYSICIAN: REFERRING PHYSICIAN: MERCY GAXIOLA DO DATE OF SERVICE: 09/13/18 Discharge Plan Patient Name: DANIS BLACKBURN Facility: [facility]:[place] : 1950 Planned Disposition: Home Anticipated Discharge Date: 09/13/18 Discharge Date: Expected LOS: 6 Initial Reviewer: [email or web address] Initial Review Date: 09/13/2018 Generated: 09/13/18 5:38 pm Comments DCP- Discharge Planning Updated by [email or web address]: Pefrecto Blanco on 09/13/18 3:[address] Patient Name: DANIS BLACKBURN Admission Status: ER Accout number: [id number] Admission Date: 09-07-2018 : 1950 Admission Diagnosis:GENERALIZED EDEMA Attending: MERCY GAXIOLA Current LOS: 6 Anticipated DC Date: 09-13-2018 Planned Disposition: Home Primary Insurance: [employer] CHOICE PPO MCR ADVANT Discharge Planning Comments: CM MET WITH PT IN ROOM TO DISCUSS DISCHARGE PLANNING AND NEEDS. PT REPORTS LIVING AT HOME INDEPENDENTLY AND ALONE. PT REPORTS HIS NEPHEW SOMETIMES STAYS WITH HIM AT HOME. PT HAS CANE AND WALKER WITH NO MEDICAL EQUIPMENT PROVIDER PREFERENCE. PT HAS NO OUTSIDE SERVICES ASSISTING IN THE HOME. CM DISCUSSED AVAILABILITY OF HOME HEALTH, REHAB SERVICES AND MEDICAL EQUIPMENT. PT DENIES DISCHARGE NEEDS, REPORTS HIS NEPHEW WILL PICK HIM UP FOR DISCHARGE HOME. IMPORTANT MESSAGE FROM MEDICARE PROVIDED AND EXPLAINED. PT PLANS TO DISCHARGE HOME ALONE, DENIES NEEDS. FAMILY TO TRANPORT HOME AT DISCHARGE. CM TO FOLLOW AND ASSIST IF NEEDED. Adventure Therapist: Perfecto Blanco DCPIA - Discharge Planning Initial Assessment Updated by [id number]: Perfecto Blanco on 09/13/18 4:30 pm * Is the patient Alert and Oriented? Yes * How many steps to enter\exit or inside your home? NONE * PCP DR. OVALLES, [facility] * Pharmacy [facility] [address] * Preadmission Environment Home Alone * ADLs Independent * Equipment Glucometer Walker * Other Equipment NO MEDICAL EQUIPMENT PROVIDER PREFERENCE * List name and contact numbers for known caregivers / representatives who currently or will assist patient after discharge: SALLIE BLACKBURN, , * Verbal permission to speak to the caregivers and representatives has been obtained from the patient. No * Community resources currently utilized None * Please name any agencies selected above. NONE * Additional services required to return to the preadmission environment? No * Can the patient safely return to the preadmission environment? Yes * Has this patient been hospitalized within the prior 30 days at any hospital? No Coverage Notice Reviewer: [id number] Alonso Blanco Notice Issued Date-Time: 09/13/2018 9:18 Notice Type: IM Discharge Notice Notice Delivered To: Patient Relationship to Patient: Network Operations Project Manager Name: Delivery Method: HAND - Hand Delivered Mignon Days: Prior Verbal Notification: Recipient Understood Notice: Yes Recipient Signature: Yes Med Rec Note Co-signed by Attending: Coverage Notice Comment: Last DP export: 09/13/18 3:30 p Patient Name: DANIS BLACKBURN Page [id number] at 1638 All edits/amendments must be made on the electronic document DICTATION DATE: 09/13/18 1637 GEOLOGICAL SURVEY FIELD ASSISTANT: SHAYLA 09/13/18 1637 RPT#: [id number] DC DATE: STATUS: ADM IN [facility] [address] [place] [address] END OF REPORT
--- NOTE | 2018-09-13 19:12 | NUR ---
PT RESTING IN BED. AAO. UP AD KANNAN. 275 OF CONCENTRATED,DARK URINE EMPTIED FROM URINAL. PT HAS NO S/S OF DISTRESS. BEDLOW AND CALL LIGHT IN REACH. NAME AND DATE PLACED ON BOARD. PT WILL CALL FOR ASSIST WHEN NEEDED. WILL CPOC
[2018-09-13 20:00] VITALS: BP 148/85
--- NOTE | 2018-09-13 23:03 | NUR ---
FSBS IS 195 2 UNITS GIVEN ORDERED. SNACK OFFERED. PT DENIES ANY NEEDS. WILL CPOC
[2018-09-14 00:30] VITALS: BP 133/72
[2018-09-14 04:30] VITALS: BP 139/84
--- NOTE | 2018-09-14 05:41 | NUR ---
PT ASLEEP. RESP EVEN AND UNLABORED. NO S/S OF DISTRESS. BEDLOW AND CALL LIGHT IN REACH. PT WILL CALL FOR ASSIST WHEN NEEDED. WILL CPOC
[2018-09-14 06:01] LABS: CALCIUM 8.1 mg/dL (8.5-10.1); CARBON DIOXIDE 20.2 mmol/L (21.0-32.0); CREATININE - SERUM 4.6 mg/dL (0.6-1.3); POTASSIUM - SERUM 4.2 mmol/L (3.5-5.1)
--- NOTE | 2018-09-14 07:11 | NUR ---
PT FSBS IS 205 4 UNITS GIVEN ORDERED. WILL CPOC
[2018-09-14 08:33] VITALS: BP 135/64
[2018-09-14 11:48] VITALS: BP 139/79
[2018-09-14 12:12] LABS: ANCA - ANTIMYELOPEROXIDASE <9.0 U/mL (0.0-9.0); ANCA - ANTIPROTEINASE 3 <3.5 U/mL (0.0-3.5); ANCA - ATYPICAL <1:20 titer (Neg:<1:20); ANCA - CYTOPLASMIC <1:20 titer (Neg:<1:20); ANCA - PERINUCLEAR <1:20 titer (Neg:<1:20)
[2018-09-14] MEDS ORDERED: BUMEX2 MG PO (13:44)
[2018-09-14 15:11] LABS: UPE RAND - ALBUMIN 53.2 % (()); UPE RAND - ALPHA 1 GLOBULIN 12.2 % (()); UPE RAND - ALPHA 2 GLOBULIN 9.6 % (()); UPE RAND - GAMMA GLOBULIN 8.9 % (())
--- NOTE | 2018-09-18 09:09 | MORECARE ---
CASE MANAGEMENT DISCHARGE SUMMARY PATIENT: DANIS BLACKBURN UNIT: [id number] ADM DATE: 09/07/18 AGE: 68 : 50 SEX: M ROOM/BED: D.2132 AUTHOR: EFRAÍN CHEN PHYSICIAN: REFERRING PHYSICIAN: MERCY GAXIOLA DO DATE OF SERVICE: 09/18/18 Discharge Plan Patient Name: DANIS BLACKBURN Facility: [facility]:[place] : 1950 Planned Disposition: Home Anticipated Discharge Date: 09/14/18 Discharge Date: 09/14/2018 Expected LOS: 7 Initial Reviewer: [email or web address] Initial Review Date: 09/13/2018 Generated: 09/18/18 10:09 am Comments DCP- Discharge Planning Updated by [email or web address]: Perfecto Blanco on 09/13/18 3:[address] Patient Name: DANIS BLACKBURN Admission Status: ER Accout number: [id number] Admission Date: 09-07-2018 : 1950 Admission Diagnosis:GENERALIZED EDEMA Attending: MERCY GAXIOLA Current LOS: 6 Anticipated DC Date: 09-13-2018 Planned Disposition: Home Primary Insurance: [employer] CHOICE PPO MCR ADVANT Discharge Planning Comments: CM MET WITH PT IN ROOM TO DISCUSS DISCHARGE PLANNING AND NEEDS. PT REPORTS LIVING AT HOME INDEPENDENTLY AND ALONE. PT REPORTS HIS NEPHEW SOMETIMES STAYS WITH HIM AT HOME. PT HAS CANE AND WALKER WITH NO MEDICAL EQUIPMENT PROVIDER PREFERENCE. PT HAS NO OUTSIDE SERVICES ASSISTING IN THE HOME. CM DISCUSSED AVAILABILITY OF HOME HEALTH, REHAB SERVICES AND MEDICAL EQUIPMENT. PT DENIES DISCHARGE NEEDS, REPORTS HIS NEPHEW WILL PICK HIM UP FOR DISCHARGE HOME. IMPORTANT MESSAGE FROM MEDICARE PROVIDED AND EXPLAINED. PT PLANS TO DISCHARGE HOME ALONE, DENIES NEEDS. FAMILY TO TRANPORT HOME AT DISCHARGE. CM TO FOLLOW AND ASSIST IF NEEDED. Curator: Perfecto Blanco DCPIA - Discharge Planning Initial Assessment Updated by [id number]: Perfecto Blanco on 09/13/18 4:30 pm * Is the patient Alert and Oriented? Yes * How many steps to enter\exit or inside your home? NONE * PCP DR. OVALLES, [facility] * [facility] [address] * Preadmission Environment Home Alone * ADLs Independent * Equipment Glucometer Walker * Other Equipment NO MEDICAL EQUIPMENT PROVIDER PREFERENCE * List name and contact numbers for known caregivers / representatives who currently or will assist patient after discharge: SALLIE BLACKBURN, SISTER, * Verbal permission to speak to the caregivers and representatives has been obtained from the patient. No * Community resources currently utilized None * Please name any agencies selected above. NONE * Additional services required to return to the preadmission environment? No * Can the patient safely return to the preadmission environment? Yes * Has this patient been hospitalized within the prior 30 days at any hospital? No Coverage Notice Reviewer: [email or web address] Alonso Blanco Notice Issued Date-Time: 09/13/2018 9:18 Notice Type: IM Discharge Notice Notice Delivered To: Patient Relationship to Patient: Tray Checker Name: Delivery Method: HAND - Hand Delivered Mignon Days: Prior Verbal Notification: Recipient Understood Notice: Yes Recipient Signature: Yes Med Rec Note Co-signed by Attending: Coverage Notice Comment: Last DP export: 09/13/18 3:38 p Patient Name: DANIS BLACKBURN Page [id number] at 0909 All edits/amendments must be made on the electronic document DICTATION DATE: 09/18/18908 PRODUCTION OPERATIONS ENGINEER: SHAYLA 09/18/18908 RPT#: [id number] DC DATE:09/14/18 STATUS: DIS IN [facility] [address] [place] [address] END OF REPORT
== END 2018-09-14 15:34 | disposition home or self-care (01) | DRG 291 ==
LOC: D.ER 13:38 → D.M2 18:46 → D.EDHOLD 18:46 → D.M2 18:56
PROVIDERS: Emergency Medicine; Internal Medicine Nephrology; ADMIT Family Medicine; ATTEND Family Medicine
DX: I13.0 Hypertensive heart and chronic kidney disease with heart failure and stage 1 through stage 4 chronic kidney disease, or unspecified chronic kidney disease (principal); E43 Unspecified severe protein-calorie malnutrition; I50.31 Acute diastolic (congestive) heart failure; N17.9 Acute kidney failure, unspecified; Z68.41 Body mass index [BMI] 40.0-44.9, adult; N18.9 Chronic kidney disease, unspecified; D64.9 Anemia, unspecified; J44.9 Chronic obstructive pulmonary disease, unspecified; I25.10 Atherosclerotic heart disease of native coronary artery without angina pectoris; E11.22 Type 2 diabetes mellitus with diabetic chronic kidney disease

== ENCOUNTER 2018-09-19 06:28 | Outpatient (CLI) | payer MEDICARE ==
[2018-09-19] VITALS (7 sets, daily range): BP systolic 133–183; BP diastolic 53–83; BMI 45.4; BMI 64.3
[~2018-09-19 06:28] MED LIST changes: +ALBUTEROL SULF8.5 GM INH; +BAYER CHEWABLE81 MG PO; +BUMEX2 MG PO; +CATAPRES0.1 MG PO; +FERROUS SULFAT325 MG PO; +HCTZ PO; +LISINOPRIL20 MG PO; +NITROQUICK0.4 MG SL; +SYMBICORT 16010.2 GM INH; +TRIAM PO
[2018-09-19 07:01] LABS: BASOPHILS 0.2 % (0-2); EOSINOPHILS 7.6 % (0-7); HEMATOCRIT 36.8 % (42.0-54.0); HEMOGLOBIN 12.6 g/dL (13.5-17.5); IMMATURE GRANULOCYTES 0.5 % (0-5); LYMPHOCYTES 33.7 % (15-50); MCH 29.9 pg (26.0-34.0); MCHC 34.2 g/dL (31.0-37.0); MCV 87.2 fL (80.0-100.0); MEAN PLATELET VOLUME 9.2 fL (7.4-10.4); MONOCYTES 9.8 % (2-11); NEUTROPHILS 48.2 % (40-80); PLATELET COUNT 140 10x3/uL (130-400); RBC 4.22 10x6/uL (4.20-6.10); RDW 13.4 % (11.5-14.5)
[2018-09-19 07:21] LABS: ANION GAP 7.4 mmol/L (8-16); CALCIUM 8.1 mg/dL (8.5-10.1); CARBON DIOXIDE 28.7 mmol/L (21.0-32.0); CREATININE - SERUM 3.2 mg/dL (0.6-1.3); POTASSIUM - SERUM 3.1 mmol/L (3.5-5.1)
[2018-09-19 07:23] LABS: APTT 28.4 SECONDS (22.8-39.4); INR 1.07 (0.85-1.17); PROTIME 13.4 SECONDS (11.6-15.0)
--- NOTE | 2018-09-19 20:00 | NUR ---
PATIENT RECEIVED LAYING IN BED WATCHING TV. PATIENT ASSESSMENT & VITAL SIGNS DONE. PATIENT HAD NO C/O PAIN OR DISTRESS. PATIENT HAS SPECIMEN CUPS IN ROOM FOR TO SEE IN THE MORNING. BED LOW. CALL LIGHT WITHIN REACH. WILL CONTINUE TO MONITOR.
[2018-09-20] VITALS: BP 141/71
[2018-09-20 04:15] VITALS: BP 138/63
--- NOTE | 2018-09-20 04:16 | NUR ---
PATIENT URINE COLLECTED IN CUPS FOR TO SEE THIS MORNING. CALL LIGHT WITHIN REACH. WILL CONTINUE TO MONITOR.
[2018-09-20 09:40] VITALS: BP 135/69
[2018-09-20 13:27] VITALS: BP 166/93
--- NOTE | 2018-09-20 14:44 | NUR ---
PAGED SOLE GOODRICH WITH RENAL, WAITING K 9 POLICE OFFICER BACK.
--- NOTE | 2018-09-20 15:02 | NUR ---
THE PATIENT WAS LYING IN BED AND WATCHING TELEVISION WHEN STAFF ENTERED HIS ROOM. BED IS IN TH ELOW POSITION WITH SIDERAILS X2 AND CALL LIGHT WITHIN REACH. THE PATIENT DEMONSTRATES APPROPRIATE USE OF A CALL LIGHT. THE PATIENT APPEARS COMFORTABLE WITH NO QUESTIONS OR CONCERNS AT THIS TIME.
--- NOTE | 2018-09-20 15:07 | NUR ---
RECEIVED CALL BACK FROM DR. PURI, WHO STATED THAT PT COULD BE D/C. HE JUST FORGOT TO PUT DISCHARGE ORDER.
== END 2018-09-20 17:10 | disposition home or self-care (01) ==
LOC: D.SP 06:28 → D.RAD 09:00 → D.SP 09:00 → D.M3 14:51 → D.SP 09-20 17:10
PROVIDERS: ATTEND Internal Medicine Nephrology
DX: I13.0 Hypertensive heart and chronic kidney disease with heart failure and stage 1 through stage 4 chronic kidney disease, or unspecified chronic kidney disease (principal); E11.22 Type 2 diabetes mellitus with diabetic chronic kidney disease; N18.9 Chronic kidney disease, unspecified; I50.9 Heart failure, unspecified; N17.9 Acute kidney failure, unspecified; E11.21 Type 2 diabetes mellitus with diabetic nephropathy; R25.1 Tremor, unspecified; E07.9 Disorder of thyroid, unspecified; Z95.5 Presence of coronary angioplasty implant and graft; J45.909 Unspecified asthma, uncomplicated; K21.9 Gastro-esophageal reflux disease without esophagitis; M19.90 Unspecified osteoarthritis, unspecified site; L40.9 Psoriasis, unspecified; F20.9 Schizophrenia, unspecified; F31.9 Bipolar disorder, unspecified; Z88.0 Allergy status to penicillin; F17.200 Nicotine dependence, unspecified, uncomplicated; Z79.84 Long term (current) use of oral hypoglycemic drugs; Z79.899 Other long term (current) drug therapy; Z01.812 Encounter for preprocedural laboratory examination

== ENCOUNTER 2020-09-16 12:59 | Emergency (ER) | payer MEDICARE ==
[~2020-09-16] VITALS: Ht 162.6 cm; Wt 101.8 kg
[2020-09-16 13:04] VITALS: Ht 162.6 cm; Wt 101.8 kg
[2020-09-16] MEDS ORDERED: SYNTHROID100 MCG PO (13:06)
[2020-09-16] MEDS ORDERED: FLOMAX0.4 MG PO (13:07)
[2020-09-16] MEDS ORDERED: LIPITOR40 MG PO (13:08)
[2020-09-16] MEDS ORDERED: LANTUS INS100 UNITS/ SC (13:11)
[2020-09-16] MEDS ORDERED: COLACE100 MG PO (13:23)
[2020-09-16] MEDS ORDERED: MIRALAX17 GM PO (13:24)
[2020-09-16 15:22] VITALS: BP 128/72
== END 2020-09-16 15:23 | disposition home or self-care (01) ==
LOC: D.ER 12:59
DX: K56.41 Fecal impaction (principal); E11.9 Type 2 diabetes mellitus without complications; Z79.84 Long term (current) use of oral hypoglycemic drugs; J45.909 Unspecified asthma, uncomplicated; I10 Essential (primary) hypertension